=== PATIENT | male | born 1955 | race Caucasian/White ===

== ENCOUNTER 2018-04-23 18:33 | Emergency (ER) | payer OTHER ==
[~2018-04-23] VITALS: Ht 172.7 cm; Wt 79.4 kg
[2018-04-23 19:16] VITALS: BP 149/72
[2018-04-23] MEDS ORDERED: HYDROcodone/APAP 5/325MG 1 TAB TABLET PO ONE (20:00)
[2018-04-23] MEDS ORDERED: DIPHTH,PERTUSS(ACELL),TET TOX 0.5 ML DISP.SYRIN. VAX IM ONE (20:00)
--- NOTE | 2018-04-23 20:29 | PHYS DOC ---
Past Medical History Past Medical History: No Pertinent History Past Surgical History: No Surgical History Alcohol Use: None Drug Use: None Adult General Chief Complaint Chief Complaint: LACERATION/AVULSION HPI HPI Patient is a 62 year old male who presents with 1830 today patient fell backward when he brought his left hand back to catch himself and his left hand landed on a rubén metal that caused a "L" shaped laceration to the palm of his left hand. Patient's currently rating his pain 8 out of 10. Review of Systems Review of Systems Constitutional: Denies fever or chills [] Eyes: Denies change in visual acuity, redness, or eye pain [] HENT: Denies nasal congestion or sore throat [] Respiratory: Denies cough or shortness of breath [] Cardiovascular: No additional information not addressed in HPI [] GI: Denies abdominal pain, nausea, vomiting, bloody stools or diarrhea [] : Denies dysuria or hematuria [] Musculoskeletal: Denies back pain or joint pain [] Integument: Denies rash or skin lesions [] Neurologic: Denies headache, focal weakness or sensory changes [] Endocrine: Denies polyuria or polydipsia [] All other systems were reviewed and found to be within normal limits, except as documented in this note. Current Medications Current Medications Current Medications Medications (Trade) Dose Ordered Sig/Zuhair Start Time Stop Time Status Last Admin Dose Admin Acetaminophen/ Hydrocodone Bitart (Lortab 5/325) 1 tab 1X ONCE 04/23/18 20:00 04/23/18 20:02 DC 04/23/18 20:08 1 TAB Diphtheria/ Tetanus/Acell Pertussis (Boostrix) 0.5 ml ONCE ONCE 04/23/18 20:00 04/23/18 20:02 DC 04/23/18 20:09 0.5 ML Lidocaine/ Epinephrine (LIDOCAINE 1%-EPI 1:100,000 Multi-Dose) 20 ml STK-MED ONCE 04/23/18 22:58 04/23/18 22:59 DC Lidocaine/Sodium Bicarbonate (Buffered Lidocaine 1%) 6 ml 1X ONCE 04/23/18 23:00 04/23/18 23:01 DC 04/23/18 23:21 6 ML Allergies Allergies Allergies Coded Allergies Type Severity Reaction Last Updated Verified No Known Drug Allergies 04/23/18 No Physical Exam Physical Exam Constitutional: Well developed, well nourished, no acute distress, non-toxic appearance. [] HENT: Normocephalic, atraumatic, bilateral external ears normal, oropharynx moist, no oral exudates, nose normal. [] Eyes: PERRLA, EOMI, conjunctiva normal, no discharge. [] Neck: Normal range of motion, no tenderness, supple, no stridor. [] Cardiovascular:Heart rate regular rhythm, no murmur [] Lungs & Thorax: Bilateral breath sounds clear to auscultation [] Abdomen: Bowel sounds normal, soft, no tenderness, no masses, no pulsatile masses. [] Skin: Warm, dry, no erythema, no rash. [] Back: No tenderness, no CVA tenderness. [] Extremities: No tenderness, no cyanosis, no clubbing, ROM intact, no edema. [] Neurologic: Alert and oriented X 3, normal motor function, normal sensory function, no focal deficits noted. [] Psychologic: Affect normal, judgement normal, mood normal. [] Current Patient Data Vital Signs Vital Signs Date Time Temp Pulse Resp B/P (MAP) Pulse Ox O2 Delivery O2 Flow Rate FiO2 04/23/18 20:08 16 99 Room Air 04/23/18 19:16 98.9 68 149/72 (97) 98.9 EKG EKG [] Radiology/Procedures Radiology/Procedures [] Impressions: [facility] [address] [place], [place] [id number] IMAGING REPORT Signed PATIENT: ADEN ARREDONDO ACCOUNT: [id number] : 1955 LOCATION: ER AGE: 62 SEX: M EXAM STATUS: REG ER ORD. PHYSICIAN: MONTSERRAT MCGILL APRN REASON: laceration PROCEDURE: HAND LEFT 3V Left hand 3 views. HISTORY: Laceration around fifth metacarpal 3 views were taken of the left hand. There is soft tissue swelling laterally. There are possible tiny opaque foreign bodies. There is no fracture or acute osseous abnormality. There is been an old amputation of the distal phalanx of the fourth finger. IMPRESSION: 1. 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 2. No fracture or acute osseous abnormality. Electronically signed by: Kevin Villanueva MD (04/23/2018 10:21 PM) [id number] DICTATED and SIGNED BY: KEVIN VILLANUEVA MD DATE: 04/23/182220 Course & Med Decision Making Course & Med Decision Making Patient is a 62 year old male who presents with 1830 today patient fell backward when he brought his left hand back to catch himself and his left hand landed on a rubén metal that caused a "L" shaped laceration to the palm of his left hand. Patient's currently rating his pain 8 out of 10. Alert and oriented. Skin pink warm and dry. Vital signs within normal limits. Bleeding is controlled. Patient has a 1" x 1" "L" laceration to the palm of his left hand. Patient can wiggle and move all fingers the patient states he "will not make a fist" when I asked him. Patient is able to bend all fingers, But it does cause him pain. Radial pulses strong and present. Patient is given a Boostrix shot and [place] in the ED. The wound is cleaned and rinsed thoroughly with copious amounts of sterile water and chlorhexidine. Patient will be given Keflex antibiotic for infection prophylaxis and pain medication. Patient to follow up here in the ED or with his primary care in 10 days for suture removal or sooner for infection symptoms. Laceration Repair by me: Anesthesia: 1% lidocaine locally Location: Radial side Left palm Tendon/Joint/Nerves: No injury Foreign body: detected after copious irrigation and exploration. 5 pieced of small pieces of debrie were removed from the wound. After further exploration no more foreign objects seen or detected. Technique: 11 Simple Interrupted Sutures Complexity: No subcutaneous sutures/mucosal repair/edge excision Post Closure Length: 1 inch by 1 inch Patient's bleeding was easily controlled in the department and there is no indication of anemia. No evidence of compartment syndrome, neurologic injury, vascular injury, open joint, tendon laceration, or foreign body. Patient is appropriate for outpatient follow up. 48 hour wound check. Scar minimization instructions given. Dragon Disclaimer Dragon Disclaimer This electronic medical record was generated, in whole or in part, using a voice recognition dictation system. Departure Departure Impression: Primary Impression: Laceration of left hand Disposition: HOME, SELF-CARE Condition: STABLE Patient Instructions: Laceration Care, Adult Additional Instructions: Return to ED or go to her primary care in 10 days for sutural removal. Watch for signs of infection and if there are signs of infection return to the ED. Take medication as prescribed. Scripts Cephalexin (KEFLEX) 500 Mg Capsule 1 CAP PO TID, #21 CAP Prov: MONTSERRAT MCGILL APRN 04/23/18 Hydrocodone/Apap 5-325 (NORCO 5-325 TABLET) 1 Each Tablet 1 TAB PO PRN Q6HRS PRN for PAIN, #8 TAB 0 Refills Prov: MONTSERRAT MCGILL APRN 04/23/18 Problem Qualifiers Primary Impression: Laceration of left hand Encounter type: initial encounter Foreign body presence: without foreign body Qualified Codes: S61.412A - Laceration without foreign body of left hand , initial encounter MONTSERRAT MCGILL APRN Apr 23, 2018 20:29
--- NOTE | 2018-04-23 22:24 | RAD ---
Left hand 3 views. HISTORY: Laceration around fifth metacarpal 3 views were taken of the left hand. There is soft tissue swelling laterally. There are possible tiny opaque foreign bodies. There is no fracture or acute osseous abnormality. There is been an old amputation of the distal phalanx of the fourth finger. IMPRESSION: 1. 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 2. No fracture or acute osseous abnormality. Electronically signed by: Kevin Bergeron MD (04/23/2018 10:21 PM) [facility]
[2018-04-23] MEDS ORDERED: HYDR-3164 PO (22:29)
[2018-04-23] MEDS ORDERED: LIDOCAINE 1%/EPI 1:100,000 20 ML VIAL. ONE (22:58)
[2018-04-23] MEDS ORDERED: LIDOCAINE WITH 8.4% SOD BICARB 3 ML DISP.SYRIN. INJ ONE (23:00)
[2018-04-23] MEDS ORDERED: CEPH-264 PO (23:30)
== END 2018-04-23 23:37 | disposition home or self-care (01) ==
LOC: ER 18:33
DX: S61.412A Laceration without foreign body of left hand, initial encounter (principal); W26.8XXA Contact with other sharp object(s), not elsewhere classified, initial encounter; Y93.89 Activity, other specified; Y92.89 Other specified places as the place of occurrence of the external cause; Y99.8 Other external cause status
CPT/HCPCS: 12042; 73130; 90471; 90715; 99284-25

== ENCOUNTER 2018-05-05 10:45 | Emergency (ER) | payer OTHER ==
[~2018-05-05] VITALS: Ht 172.7 cm; Wt 79.4 kg
[2018-05-05 10:45] VITALS: BP 139/70
[~2018-05-05 10:45] MED LIST: CEPH-264 PO; HYDR-3164 PO
--- NOTE | 2018-05-05 11:22 | PHYS DOC ---
Past Medical History Past Medical History: No Pertinent History Past Surgical History: No Surgical History Alcohol Use: None Drug Use: None Adult General Chief Complaint Chief Complaint: SUTURE/STAPLE REMOVAL HPI HPI Patient is a 62 year old male who presents suture removal that was placed in this emergency room in left,palm on April 21. Patient denies pain or discharge from the wound or fever and chills. Patient is up-to-date with tetanus immunization. Review of Systems Review of Systems Constitutional: Denies fever or chills [] Eyes: Denies change in visual acuity, redness, or eye pain [] HENT: Denies nasal congestion or sore throat [] Respiratory: Denies cough or shortness of breath [] Cardiovascular: No additional information not addressed in HPI [] GI: Denies abdominal pain, nausea, vomiting, bloody stools or diarrhea [] : Denies dysuria or hematuria [] Musculoskeletal: Denies back pain or joint pain [] Integument: Denies rash or skin lesions [] Neurologic: Denies headache, focal weakness or sensory changes [] Endocrine: Denies polyuria or polydipsia [] All other systems were reviewed and found to be within normal limits, except as documented in this note. Allergies Allergies Allergies Coded Allergies Type Severity Reaction Last Updated Verified No Known Drug Allergies 04/23/18 No Physical Exam Physical Exam Constitutional: Well developed, well nourished, no acute distress, non-toxic appearance. [] HENT: Normocephalic, atraumatic Eyes: PERRLA, EOMI, conjunctiva normal, no discharge. [] Neck: Normal range of motion, no tenderness, supple, no stridor. [] Cardiovascular:Heart rate regular rhythm, no murmur [] Extremities: Left palm sutured wound without discharge or sign of infection ,No tenderness, no cyanosis, no clubbing, ROM intact, no edema. [] Neurologic: Alert and oriented X 3, normal motor function, normal sensory function, no focal deficits noted. [] Psychologic: Affect normal, judgement normal, mood normal. [] Current Patient Data Vital Signs Vital Signs Date Time Temp Pulse Resp B/P (MAP) Pulse Ox O2 Delivery O2 Flow Rate FiO2 05/05/18 10:45 98.1 75 18 139/70 (93) 97 Room Air 98.1 EKG EKG [] Radiology/Procedures Radiology/Procedures [] Course & Med Decision Making Course & Med Decision Making 11 suture of left palm laceration was removed by STORE LEADER without problem. Steri- Strip was placed. Dragon Disclaimer Dragon Disclaimer This electronic medical record was generated, in whole or in part, using a voice recognition dictation system. Departure Departure Impression: Primary Impression: Encounter for removal of sutures Disposition: HOME, SELF-CARE (at 1121) Condition: STABLE Referrals: UNKNOWN PCP NAME (PCP) Patient Instructions: Suture Removal Additional Instructions: Keep wound clean and dry Follow-up with your primary care physician in 3-5 days Return to ER if not getting better DINAH BRITTON MD May 05, 2018 11:22
== END 2018-05-05 12:31 | disposition home or self-care (01) ==
LOC: ER 10:45
DX: S61.412D Laceration without foreign body of left hand, subsequent encounter (principal); X58.XXXD Exposure to other specified factors, subsequent encounter
CPT/HCPCS: 99281; 99282

== ENCOUNTER → 2020-12-27 | Outpatient (CLI) | payer OTHER ==
--- NOTE | 2020-12-27 11:56 | KCIC ---
EXAM: Lumbar spine, 5 views. HISTORY: Pain. COMPARISON: None. FINDINGS: 5 views of the lumbar spine are obtained. There is mild levocurvature centered at L4. There is 8 mm grade 1 anterolisthesis of L4 on L5. There is 2 mm retrolisthesis of L1 on L2. There is dege nerative endplate remodeling with disc space narrowing at L1-L2. There is endplate remodeling and sli ght disc space narrowing at additional lumbar levels. There is advanced facet arthropathy at the mid lower lumbar levels. IMPRESSION: 1. Multilevel degenerative change, described in detail above. Possible significant at L1-L2 and L4-L5 . 2. Grade 1 anterolisthesis of L4 on L5 and minimal lumbar levocurvature centered at L4. 3. No acute osseous finding. Electronically signed by: Rosina Ontiveros MD (12/27/2020 11:54 AM) [id number]
== END ==
LOC: KCIC 09:58
PROVIDERS: ATTEND Family Medicine
DX: M47.816 Spondylosis without myelopathy or radiculopathy, lumbar region (principal); M48.061 Spinal stenosis, lumbar region without neurogenic claudication; M43.16 Spondylolisthesis, lumbar region
CPT/HCPCS: 72110

== ENCOUNTER → 2020-12-27 | Outpatient (CLI) | payer OTHER ==
--- NOTE | 2020-12-27 13:21 | KCIC ---
CT SCREENING FOR CORONARY ARTERY History: Reason: Cardiovascular screening, hyperlipidemia. / Spl. Instructions: Past smoker. / Histor y: Technique: With retrospective electrocardiogram gating axial reconstructed noncontrast images of the chest at the level of the coronary arteries was performed. Images were post processed on workstation and calcium score calculated using the modified Agatston Janowitz protocol. Exposure: One or more of the following individualized dose reduction techniques were utilized for thi s examination: 1. Automated exposure control 2. Adjustment of the mA and/or kV according to patient size 3. Use of iterative reconstruction technique. Comparison: None Findings: Total coronary calcium score is 0. There is no plaque burden and low cardiovascular disease risk. This is based on the calcium score of 0 of the left main coronary artery, 0 of the left anteri or descending artery, score of 0 of the left circumflex artery and score of 0 of the right coronary a rtery. Noncoronary findings: 6 mm right lower lobe pulmonary nodule (series 3 image 17). IMPRESSION: 1. Low cardiovascular disease risk. Calcium score 0. 2. Small right lower lobe pulmonary nodule. Recommend 6-12 month follow-up chest CT without contrast to ensure stability. Electronically signed by: Ramon Gorman DO (12/27/2020 1:19 PM) [facility]
== END ==
LOC: KCIC 10:04
PROVIDERS: ATTEND Family Medicine
DX: Z13.6 Encounter for screening for cardiovascular disorders (principal); R91.1 Solitary pulmonary nodule
CPT/HCPCS: 75571